=== PATIENT | female | born 1940 | race Two or more races ===

== ENCOUNTER 2017-05-27 06:40 | Inpatient (IN) | payer MEDICARE, OTHER ==
--- NOTE | ~2017-05-27 | OP ---
Record Of Operation [facility] [address] [place]. [address] NAME: LIZETTE ALLEN : 42 STATUS : ADM IN PAT#: [id number] AGE: 77 ADM/REG DATE : 05/27/17 MR#: [id number] REPORT SERV DATE: 05/28/17 DICTATED BY: ERNESTO HI JR. DATE: 05/27/17 REPORT STATUS : Draft TRANSCRIBED BY: NELI DATE: 05/27/17 DATE OF PROCEDURE: 05/27/2017 PREOPERATIVE DIAGNOSES: Atrial fibrillation, anemia of chronic disease, coronary artery disease, chronic obstructive pulmonary disease, diabetes mellitus type 2, history of previous gastrointestinal bleed, history of previous pacemaker placement, hypertension, right upper lobe indeterminate mass likely non-small cell lung cancer. POSTOPERATIVE DIAGNOSIS: Non-small cell lung cancer. NAME OF OPERATION: Bronchoscopy, right thoracoscopy with right upper lobe wedge excision for diagnosis, completion of right upper lobectomy, complete mediastinal node dissection, melvina stations 4R, 7, 9, 11R, intercostal nerve block. SURGEON: Dr. Ernesto Hi Jr. RESIDENT SURGEON: Dr. Joe Elizabeth. CUSTOMER SERVICE SPECIALIST: Luis Joiner. ANESTHESIA: General endotracheal. FINDINGS: The patient was noted to have a likely bronchogenic carcinoma involving the right upper lobe posteriorly. We wedged this out for diagnosis. Pathology demonstrated this to be a non-small cell lung cancer. We then went ahead and completed the right upper lobectomy. Hilar nodes were slightly granulomatous and inflammatory, but no obvious malignancy. We were able to complete the operation thoracoscopically. There was good reinflation of the right middle and lower lobe. Final pathology is pending. DETAILS OF OPERATION: After adequate general anesthesia, the patient was intubated. Bronchoscopy was performed noting no endobronchial lesions. Mucous secretions were evacuated. A left-sided double-lumen endotracheal tube was then placed. The patient was then positioned in the left lateral decubitus position. The right chest was prepped and draped in routine sterile fashion. A small incision was made overlying the lower intercostal space. A separate anterior trocar incision was also made. Through these two incision sites, above findings were noted. The mass was identified and wedged out with multiple firings of KELLY stapler. It was placed within specimen bag and brought through the anterior trocar site. Frozen section confirmed this to be a non-small cell lung cancer. A decision was made to go ahead and complete the right upper lobectomy. The hilar structures were then dissected out. The right superior pulmonary vein was then identified and transected preserving the middle lobe branch. The inferior pulmonary vein was also identified and preserved. The pulmonary arterial branch was then divided with a vascular stapler. The bronchus was divided with a KELLY stapler. The fissure was divided with multiple firings of KELLY stapler with tissue reinforcements. Main specimen was placed within the specimen bag and withdrawn through the anterior trocar site. Nodes from the right paratracheal, subcarinal, and inferior pulmonary ligament regions were removed along with Record Of Operation [address] [address] NAME: LIZETTE ALLEN : 42 STATUS : ADM IN PAT#: [id number] AGE: 77 ADM/REG DATE : 05/27/17 MR#: [id number] REPORT SERV DATE: 05/28/17 DICTATED BY: ERNESTO HI JR. DATE: 05/27/17 REPORT STATUS : Draft TRANSCRIBED BY: NELI DATE: 05/27/17 the hilar nodes. Chest was thoroughly irrigated with sterile water. A 20-Turkmen chest tube was placed. An intercostal nerve block had been performed. The lung was reinflated. The trocar sites were closed with running Vicryl sutures. The skin was closed with running monofilament suture. A Dermabond dressing was applied. The procedure was terminated at this point. The patient tolerated the procedure well and taken back to the recovery room in stable condition. HAWK/NELI Ernesto Hi Jr., M.D. / [id number] CC: Elizabeth Abrams Jr., M.D.
[~2017-05-27 06:40] MED LIST: CARTIA XT240 MG/24 PO
[2017-05-27 07:55] LABS: ASCORBIC ACID (UR NOT ORDER) NEG (NEG); BILIRUBIN, URINE NEGATIVE (NEG); KETONE, URINE NEGATIVE (NEG); LEUKOCYTE ESTERASE(NOT OR NEG (NEG); WBC (NOT ORDERED) (RFLEX) 2 (0-5)
[2017-05-27 08:22] LABS: BASOPHILS 0.9 %; BASOPHILS ABSOLUTE 0.05 10/3/uL (0.0-0.16); EOSINOPHILS 5.5 %; EOSINOPHILS ABSOLUTE 0.31 10/3/uL (0.0-0.53); HEMATOCRIT 32.5 % (36.0-48.0); IMMATURE GRANULOCYTES 0.4 %; IMMATURE GRANULOCYTES ABSOLUTE 0.02 10/3/uL (0.0-0.11); LYMPHOCYTES 22.6 %; LYMPHOCYTES ABSOLUTE 1.27 10/3/uL (0.67-4.30); MEAN CORPUS HGB CONC 30.8 g/dL (32.0-36.0); MEAN CORPUSCULAR HEMOGLOB 25.2 pg (26.0-34.0); MEAN CORPUSCULAR VOLUME 81.9 fL (80-100); MEAN PLATELET VOLUME 9.1 fL (9.2-13.0); MONOCYTES 6.9 %; MONOCYTES ABSOLUTE 0.39 10/3/uL (0.21-1.20); NEUTROPHILS 63.7 %; NEUTROPHILS ABSOLUTE 3.59 10/3/uL (2.02-8.40); PLATELET COUNT 323 10/3/uL (150-400); RED CELL COUNT 3.97 10/6/uL (4.0-5.6); WHITE BLOOD CELLS 5.6 10/3/uL (4.5-10.5)
[2017-05-27 08:24] LABS: MANUAL DIFF NO %
[2017-05-27 08:26] LABS: PROTIME (NOT ORD) 13.3 SEC (12.0-14.5)
[2017-05-27] MEDS ORDERED: PRAVACHOL40 MG PO (08:28)
[2017-05-27] MEDS ORDERED: CARDCD120 PO (08:29)
[2017-05-27] MEDS ORDERED: AMIT25 PO (08:29)
[2017-05-27] MEDS ORDERED: ACTOS30 PO (08:30)
[2017-05-27] MEDS ORDERED: PRILOSEC40 MG PO (08:30)
[2017-05-27] MEDS ORDERED: HYZAAR 100/25 T1 TAB PO (08:30)
[2017-05-27] MEDS ORDERED: XARELTO20 MG PO (08:31)
[2017-05-27] MEDS ORDERED: HALF81 PO (08:32)
[2017-05-27] MEDS ORDERED: BETAPACE80 PO (08:32)
[2017-05-27] MEDS ORDERED: GLUCOTRO10 PO (08:32)
[2017-05-27] MEDS ORDERED: NEUR300 PO (08:33)
[2017-05-27] MEDS ORDERED: GLUCPH8 PO (08:33)
[2017-05-27] MEDS ORDERED: SUCR PO (08:34)
[2017-05-27] MEDS ORDERED: FOSAMAX70 MG PO (08:34)
[2017-05-27] MEDS ORDERED: ULTRACET PO (08:35)
[2017-05-27 08:39] LABS: ALKALINE PHOSPHATASE 94 U/L (45-117); BUN (BLOOD UREA NITROGEN) 23 MG/DL (6-23); CALCIUM, SERUM 9.9 MG/DL (8.5-10.4); CHLORIDE, SERUM 99 MMOL/L (96-112); CO2 (CARBON DIOXIDE) 31 MMOL/L (24-34); CREATININE 0.91 MG/DL (0.55-1.02); GFR AFRICAN AMERICAN 71 ML/MIN (>=60); GFR NON AFRICAN AMERICAN 61 ML/MIN (>=60); GLOBULIN 4.2 G/DL (2.5-4.1); GLUCOSE, SERUM 168 MG/DL (60-99); POTASSIUM, SERUM 3.9 MMOL/L (3.5-5.3); SGOT(AST) 19 U/L (5-40); SGPT(ALT) 21 U/L (5-65); SODIUM, SERUM 138 MMOL/L (135-148); TOTAL BILIRUBIN 0.4 MG/DL (0-1.2); TOTAL PROTEIN 8.2 G/DL (6.0-8.5)
[2017-05-28 04:08] LABS: BUN (BLOOD UREA NITROGEN) 19 MG/DL (6-23); CALCIUM, SERUM 8.7 MG/DL (8.5-10.4); CHLORIDE, SERUM 98 MMOL/L (96-112); CO2 (CARBON DIOXIDE) 24 MMOL/L (24-34); CREATININE 1.09 MG/DL (0.55-1.02); GFR AFRICAN AMERICAN 57 ML/MIN (>=60); GFR NON AFRICAN AMERICAN 49 ML/MIN (>=60); GLUCOSE, SERUM 264 MG/DL (60-99); POTASSIUM, SERUM 4.3 MMOL/L (3.5-5.3); SODIUM, SERUM 130 MMOL/L (135-148)
[2017-05-28 05:37] LABS: BASOPHILS 0.1 %; BASOPHILS ABSOLUTE 0.01 10/3/uL (0.0-0.16); EOSINOPHILS 0 %; HEMOGLOBIN 8.7 g/dL (12.0-16.0); IMMATURE GRANULOCYTES 0.3 %; IMMATURE GRANULOCYTES ABSOLUTE 0.04 10/3/uL (0.0-0.11); LYMPHOCYTES 8.6 %; LYMPHOCYTES ABSOLUTE 1.04 10/3/uL (0.67-4.30); MEAN CORPUS HGB CONC 31.6 g/dL (32.0-36.0); MEAN CORPUSCULAR HEMOGLOB 25.7 pg (26.0-34.0); MEAN CORPUSCULAR VOLUME 81.4 fL (80-100); MEAN PLATELET VOLUME 9.1 fL (9.2-13.0); MONOCYTES 5.3 %; MONOCYTES ABSOLUTE 0.65 10/3/uL (0.21-1.20); NEUTROPHILS 85.7 %; NEUTROPHILS ABSOLUTE 10.42 10/3/uL (2.02-8.40); PLATELET COUNT 266 10/3/uL (150-400); RBC DISTRIBUTION WIDTH 18.5 % (12.0-16.0); RED CELL COUNT 3.38 10/6/uL (4.0-5.6)
[2017-05-28 05:38] LABS: HEMATOCRIT 27.5 % (36.0-48.0); MANUAL DIFF NO %; WHITE BLOOD CELLS 12.2 10/3/uL (4.5-10.5)
[2017-05-28] MEDS ORDERED: PCET PO (09:22)
[2017-06-05] MEDS ORDERED: VITAMIN D1000 UNI1 PO (05:02)
[2017-06-08] MEDS ORDERED: LANTUS SQ (10:33)
[2017-06-08] MEDS ORDERED: KDUR20 PO (10:33)
[2017-06-08] MEDS ORDERED: L20 PO (10:34)
== END 2017-05-28 14:00 | disposition home or self-care (01) | DRG 165 ==
LOC: SDC/OF 06:40 → 5NO 14:44
PROVIDERS: Thoracic Surgery (Cardiothoracic Vascular Surgery)
PROC: 0BJ08ZZ Inspection of Tracheobronchial Tree, Via Natural or Artificial Opening Endoscopic (ICD-10-PCS; 2017-05-27)
PROC: 3E0T3BZ Introduction of Anesthetic Agent into Peripheral Nerves and Plexi, Percutaneous Approach (ICD-10-PCS; 2017-05-27)
PROC: 0BBC4ZX Excision of Right Upper Lung Lobe, Percutaneous Endoscopic Approach, Diagnostic (ICD-10-PCS; principal; 2017-05-27 09:15)
PROC: 07B74ZX Excision of Thorax Lymphatic, Percutaneous Endoscopic Approach, Diagnostic (ICD-10-PCS; 2017-05-27 09:15)
PROC: 0BTC4ZZ Resection of Right Upper Lung Lobe, Percutaneous Endoscopic Approach (ICD-10-PCS; 2017-05-27 09:15)
DX: C34.11 Malignant neoplasm of upper lobe, right bronchus or lung (principal); I48.91 Unspecified atrial fibrillation; J44.9 Chronic obstructive pulmonary disease, unspecified; D63.8 Anemia in other chronic diseases classified elsewhere; E11.9 Type 2 diabetes mellitus without complications; I10 Essential (primary) hypertension; I25.10 Atherosclerotic heart disease of native coronary artery without angina pectoris; Z87.891 Personal history of nicotine dependence; Z95.5 Presence of coronary angioplasty implant and graft; Z95.0 Presence of cardiac pacemaker; Z79.84 Long term (current) use of oral hypoglycemic drugs
CPT/HCPCS: 36415; 71020; 80048; 80053; 81001; 82962; 85025; 85610; 86850; 86900; 86901; 87641; 88305; 88307; 88309; 88313; 88331; 88341; 88342; 93005; 94640; A9270-GY; J0690; J2250; J2370; J2405; J2710; J2795; J3010; J3370